=== PATIENT | male | born 1955 | race Caucasian/White ===

== ENCOUNTER 2024-05-22 09:37 | Emergency (ER) | payer MEDICAID, SELFPAY ==
[2024-05-22 09:53] VITALS: BP 151/74; PULSE 55; RESP 18; TEMP 37.1; O2SAT 97; BMI 23.8
--- NOTE | 2024-05-22 09:56 | XR_ITS ---
EXAMINATION: CT abdomen pelvis wo con ORDERING PROVIDER: Gareth Dhillon NP HISTORY: LLQ abd pain X 5 days TECHNIQUE: Without intravenous or oral contrast, CT was used in the volumetric, helical imaging acquisition of the abdomen and pelvis with 2-D and 3-D reformats generated on a separate workstation and submitted for interpretation. Institutional dose reducing protocols were utilized. Evaluation of hollow viscus and solid viscera is limited secondary to lack of intravenous and oral contrast. RADIATION DOSE: DLP 446 mGy-cm COMPARISON: None. FINDINGS: LIVER: Unremarkable. BILIARY: Unremarkable. PANCREAS: Unremarkable. SPLEEN: Unremarkable. ADRENAL GLANDS: Unremarkable. KIDNEYS: Unremarkable. URETERS: Unremarkable. BLADDER: Wall measures up to 6 mm in thickness. No surrounding inflammatory changes. CT provides limited evaluation of the urinary bladder. HOLLOW VISCUS: Moderate colonic stool burden. Appendix nondilated. Small bowel not abnormally dilated. VASCULATURE: Limited evaluation without contrast. Mild aortoiliac calcific atherosclerotic disease.. PELVIS: Enlarged prostate with coarse calcifications. Small right moderate left hydroceles with left-sided scrotal pleural. LYMPH NODES: Limited evaluation without contrast. Grossly unremarkable. LUNG BASES: Motion degraded. Scarring and atelectasis. BONES: Old healed left lateral seventh and posterior 11th and 12th rib fractures. Moderate bony degenerative changes with osteoarthritic changes of the bilateral hips. Multilevel degenerative disc disease most pronounced at L5-S1. There is retrolisthesis of L2 on L3 and L5-S1. Moderate lower lumbar spine facet arthrosis. Multilevel osteophytes and syndesmophytes. ABDOMINAL WALL: Moderate left Bochdalek hernia. Posterior left fat filled diaphragmatic hernia. IMPRESSION: 1. Findings suggestive of chronic urinary outlet obstruction. 2. Bilateral hydroceles. 3. Moderate Bochdalek hernia.
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
[2024-05-22 10:30] LABS: Basophils % (Auto) 1 % (0-2.5); Eosinophils # (Auto) 0.2 Thou/mm3 (0.0-0.5); Eosinophils % (Auto) 3 % (0-10); Hematocrit 50.5 % (41.0-53.0); Hemoglobin 16.6 g/dL (13.5-16.0); Immature Granulocytes % (Auto) 0 % (0-0); Immature Granulocytes Auto 0.01 Thou/mm3 (0.00-0.00); Lymphocytes # (Auto) 1.9 Thou/mm3 (1.0-4.8); Lymphocytes % (Auto) 31 % (10-50); Mean Corpuscular HGB Conc 32.9 g/dl (31.0-37.0); Mean Corpuscular Volume 97 fL (80-100); Monocytes # (Auto) 0.5 Thou/mm3 (0.0-0.8); Monocytes % (Auto) 8 % (0-12); Neutrophils # (Auto) 3.5 Thou/mm3 (1.8-7.7); Neutrophils % (Auto) 58 % (37-80); Nucleated Red Blood Cell % 0 /100 WBC (0); Platelet Count 302 Thou/mm3 (140-440); RDW Standard Deviation 47.8 fL (35.1-43.9); Red Blood Count 5.19 Miln/mm3 (4.50-5.90); White Blood Count 6.1 Thou/mm3 (3.8-10.6)
[2024-05-22 10:53] LABS: Alanine Aminotransferase 28 U/L (10-49); Albumin, Serum 4.6 gm/dL (3.4-4.8); Albumin/Globulin Ratio 1.5 (1.2-2.2); Alkaline Phosphatase 101 U/L (46-116); Anion Gap 6 (7-16); Aspartate Amino Transferase 28 U/L (0-34); BUN/Creatinine Ratio 20 Ratio (12-20); Bilirubin,Total 0.9 mg/dL (0.3-1.2); Blood Urea Nitrogen 16 mg/dL (9-23); Calcium 10.1 mg/dL (8.3-10.6); Calcium (Corrected) 10.1 mg/dL (8.5-10.1); Carbon Dioxide 30.3 mMol/L (20.0-31.0); Chloride 106 mMol/L (98-107); Creatinine (Component) 0.8 mg/dL (0.6-1.3); Estimated Creatinine Clearance 96.7 mL/min (>60); Globulin 3.1 gm/dL (2.3-3.5); Glucose 74 mg/dL (74-106); Lipase 37 U/L (12-53); Osmolality,Calculated 283 (275-295); Potassium 4.5 mMol/L (3.4-5.1); Sodium 142 mMol/L (136-145); Total Protein 7.7 gm/dL (5.7-8.2); eGFR > 60 See Note
[2024-05-22 11:31] LABS: Collection Type, Urine Clean Catch
[2024-05-22 11:38] LABS: Bilirubin,Urine Negative (Negative); Blood,Urine Negative (Negative); Clarity,Urine Clear (Clear/Hazy); Color,Urine Yellow (Lt Yel-Yel); Glucose, Urine Negative (Negative); Ketones,Urine Negative (Negative); Leukocyte Esterase,Urine Negative (Negative); Nitrite,Urine Negative (Negative); Protein,Urine Negative (Neg - Trace); RBC,Urine 5 /hpf (0-3); Specific Gravity,Urine 1.022 (1.001-1.035); Squamous Epithelial Cell,Urine < 1 /hpf (0-5); Urobilinogen,Urine Negative mg/dL (0.0-1.0); WBC,Urine 4 /hpf (0-5)
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
== END 2024-05-22 13:17 | disposition home or self-care (01) ==
PROVIDERS: Registered Nurse General Practice; Emergency Provider Emergency Medicine
DX: N40.0 Benign prostatic hyperplasia without lower urinary tract symptoms (principal); K44.9 Diaphragmatic hernia without obstruction or gangrene
CPT/HCPCS: 36415; 74176; 80053; 81001; 83690; 85025; 99284